=== PATIENT | female | born 1975 | race Caucasian/White ===

== ENCOUNTER 2016-06-04 22:08 | Emergency (ER) | payer BC ==
[~2016-06-04] VITALS: Ht 160 cm; Wt 97.1 kg
[~2016-06-04 22:08] MED LIST: NOHOMEMEDS
[2016-06-04 22:34] VITALS: BP 142/104
[2016-06-04] MEDS ORDERED: NAPROSYN500 MG PO (22:57)
[2016-06-04] MEDS ORDERED: AMOXICILLIN500 MG PO (22:57)
== END 2016-06-04 23:26 | disposition home or self-care (01) ==
LOC: EME 22:08 → EXP 22:08
DX: K08.9 Disorder of teeth and supporting structures, unspecified (principal)
CPT/HCPCS: 99281; 99283

== ENCOUNTER 2016-06-05 00:40 | Emergency (ER) | payer BC ==
[~2016-06-05] VITALS: Ht 160 cm; Wt 97.5 kg
[~2016-06-05 00:40] MED LIST changes: +AMOXICILLIN500 MG PO; +NAPROSYN500 MG PO
[2016-06-05 01:10] LABS: HEMATOCRIT 35.5 % (36.0-46.0); MCH 32.8 PG (29.0-34.0); MCHC 34.4 G/DL (30.0-36.0); MCV 95.4 FL (83-99); MEAN PLAT.VOLUME 10.3 uM^3 (9.5-12.4); PLATELET COUNT 293 K/uL (156-360); RBC DIS.WIDTH-CV 12.2 % (11.8-14.6); RBC DIS.WIDTH-SD 40.9 % (39-53); RED BLOOD COUNT 3.72 M/uL (3.80-5.20); WHITE BLOOD COUNT 12.3 K/uL (4.1-10.2)
[2016-06-05 01:26] LABS: INTER. NORMALIZED RATIO 1.1; PROTHROMBIN TIME 11.3 (9.2-11.2); PTT 23.8 (25-32)
[2016-06-05 01:29] LABS: CHLORIDE 105 mEq/L (99-109); POTASSIUM 3.5 mEq/L (3.7-5.4); SODIUM 138 mEq/L (136-147)
[2016-06-05 01:31] LABS: GLUCOSE 107 mg/dL (70-99)
[2016-06-05 01:32] LABS: ANION GAP 12 MEQ/L (2-14)
[2016-06-05 01:35] LABS: GFR ESTIMATE (CALCULATED) > 59 mL/min/
[2016-06-05 01:36] LABS: UREA NITROGEN (BUN) 8 mg/dL (9-23)
[2016-06-05 01:39] LABS: TROP-I INTERPRETATION NEGATIVE; TROPONIN-I < 0.01 ng/mL (0.0-0.30)
[2016-06-05 03:22] VITALS: BP 92/63
== END 2016-06-05 03:23 | disposition home or self-care (01) ==
LOC: EME 00:40
PROVIDERS: Emergency Medicine
DX: R55 Syncope and collapse (principal); T42.75XA Adverse effect of unspecified antiepileptic and sedative-hypnotic drugs, initial encounter; T39.1X5A Adverse effect of 4-Aminophenol derivatives, initial encounter
CPT/HCPCS: 71010; 80048; 83880; 84484; 85027; 85610; 85730; 93005; 99281; 99284; J7030

== ENCOUNTER 2016-07-30 10:31 | Emergency (ER) | payer BC ==
[~2016-07-30] VITALS: Ht 160 cm; Wt 96.6 kg
[2016-07-30 12:09] LABS: HEMATOCRIT 37.7 % (36.0-46.0); MCH 32.4 PG (29.0-34.0); MCHC 33.4 G/DL (30.0-36.0); MCV 96.9 FL (83-99); MEAN PLAT.VOLUME 10.3 uM^3 (9.5-12.4); PLATELET COUNT 282 K/uL (156-360); RBC DIS.WIDTH-CV 11.8 % (11.8-14.6); RBC DIS.WIDTH-SD 41.7 % (39-53); RED BLOOD COUNT 3.89 M/uL (3.80-5.20)
[2016-07-30] MEDS ORDERED: LISINOPRIL10 MG PO (12:17)
[2016-07-30] MEDS ORDERED: LORAZEPAM0.5 MG PO (12:19)
[2016-07-30 12:24] LABS: CHLORIDE 105 mEq/L (99-109); POTASSIUM 3.5 mEq/L (3.7-5.4); SODIUM 140 mEq/L (136-147)
[2016-07-30 12:26] LABS: GLUCOSE 113 mg/dL (70-99)
[2016-07-30 12:28] LABS: ANION GAP 10 MEQ/L (2-14)
[2016-07-30 12:30] LABS: GFR ESTIMATE (CALCULATED) > 59 mL/min/
[2016-07-30 12:31] LABS: UREA NITROGEN (BUN) 14 mg/dL (9-23)
[2016-07-30 12:32] LABS: TROP-I INTERPRETATION NEGATIVE; TROPONIN-I < 0.01 ng/mL (0.0-0.30)
[2016-07-30 12:57] LABS: D-DIMER ELISA < 0.15 mg/L FEU (< 0.57)
[2016-07-30 14:19] VITALS: BP 112/76
== END 2016-07-30 14:21 | disposition home or self-care (01) ==
LOC: EME 10:31
DX: R00.2 Palpitations (principal)
CPT/HCPCS: 71020; 80048; 84443; 84484; 85027; 85379; 93005; 99281; 99284

== ENCOUNTER 2016-08-08 17:12 | Emergency (ER) | payer BC ==
[~2016-08-08] VITALS: Ht 160 cm; Wt 97.1 kg
[~2016-08-08 17:12] MED LIST changes: +LISINOPRIL10 MG PO; +LORAZEPAM0.5 MG PO
[2016-08-08 17:54] LABS: HEMATOCRIT 39.7 % (36.0-46.0); MCV 97.1 FL (83-99); PLATELET COUNT 336 K/uL (156-360); RBC DIS.WIDTH-CV 11.6 % (11.8-14.6); RBC DIS.WIDTH-SD 41.6 % (39-53); RED BLOOD COUNT 4.09 M/uL (3.80-5.20); WHITE BLOOD COUNT 12.6 K/uL (4.1-10.2)
[2016-08-08 18:04] LABS: CHLORIDE 103 mEq/L (99-109); POTASSIUM 4.3 mEq/L (3.7-5.4); SODIUM 138 mEq/L (136-147)
[2016-08-08 18:06] LABS: GLUCOSE 159 mg/dL (70-99)
[2016-08-08 18:07] LABS: ANION GAP 9 MEQ/L (2-14)
[2016-08-08 18:09] LABS: GFR ESTIMATE (CALCULATED) > 59 mL/min/
[2016-08-08 18:10] LABS: UREA NITROGEN (BUN) 11 mg/dL (9-23)
[2016-08-08 18:15] LABS: TROP-I INTERPRETATION NEGATIVE; TROPONIN-I < 0.01 ng/mL (0.0-0.30)
[2016-08-08 20:06] LABS: D-DIMER ELISA < 0.15 mg/L FEU (< 0.57)
[2016-08-08 20:09] LABS: MAGNESIUM 2.1 mg/dL (1.3-2.7)
[2016-08-08] MEDS ORDERED: ATIVAN0.5 MG PO (20:54)
[2016-08-08 21:08] VITALS: BP 108/75
== END 2016-08-08 21:10 | disposition home or self-care (01) ==
LOC: EME 17:12
DX: R00.2 Palpitations (principal); R06.02 Shortness of breath
CPT/HCPCS: 71020; 80048; 83735; 84443; 84484; 85027; 85379; 93005; 99281; 99285

== ENCOUNTER 2017-04-21 19:44 | Emergency (ER) | payer BC ==
[~2017-04-21] VITALS: Ht 160 cm; Wt 97.7 kg
[~2017-04-21 19:44] MED LIST changes: +ATIVAN0.5 MG PO
[2017-04-21 20:33] LABS: ADD MIUA? YES; BILIRUBIN NEGATIVE; BLOOD NEGATIVE; COLOR YELLOW ((YELLOW)); GLUCOSE (STRIP) NEGATIVE; KETONES NEGATIVE; LEUKOCYTES TRACE; NITRITE NEGATIVE; PROTEIN (STRIP) NEGATIVE; SPECIFIC GRAVITY 1.013 (1.000-1.030); UROBILINOGEN 0.2 MG/DL (0.2-1.0)
[2017-04-21 20:38] LABS: HEMATOCRIT 35.7 % (36.0-46.0); MCH 33.5 PG (29.0-34.0); MCV 95.7 FL (83-99); MEAN PLAT.VOLUME 10.6 uM^3 (9.5-12.4); PLATELET COUNT 254 K/uL (156-360); RBC DIS.WIDTH-CV 11.8 % (11.8-14.6); RBC DIS.WIDTH-SD 40.9 % (39-53); RED BLOOD COUNT 3.73 M/uL (3.80-5.20); WHITE BLOOD COUNT 13.1 K/uL (4.1-10.2)
[2017-04-21 20:39] LABS: BACTERIA RARE /HPF; EPITHELIAL CELLS RARE /HPF; MUCUS TRACE /LPF; RED BLOOD CELLS 0-5 /HPF (0-5); UCUL ADDED? NO; WHITE BLOOD CELLS 0-5 /HPF (0-5)
[2017-04-21 20:47] LABS: CHLORIDE 105 mEq/L (99-109); POTASSIUM 3.7 mEq/L (3.7-5.4); SODIUM 137 mEq/L (136-147)
[2017-04-21 20:49] LABS: GLUCOSE 97 mg/dL (70-99)
[2017-04-21 20:50] LABS: ANION GAP 8 MEQ/L (2-14)
[2017-04-21 20:51] LABS: TOTAL BILIRUBIN 0.4 mg/dL (0.0-1.0)
[2017-04-21 20:53] LABS: ALKALINE PHOSPHATASE 81 IU/L (3-129); GFR ESTIMATE (CALCULATED) > 59 mL/min/
[2017-04-21 20:54] LABS: UREA NITROGEN (BUN) 12 mg/dL (9-23)
[2017-04-21 21:04] LABS: QUANTITATIVE HCG < 4.0 MIU/ML
[2017-04-21] MEDS ORDERED: METOPROLOL SUCC25 MG PO (21:27)
[2017-04-21] MEDS ORDERED: BENTYL20 MG PO (21:28)
[2017-04-22] MEDS ORDERED: NORCO 5/3251 TABLET PO (00:47)
[2017-04-22 01:00] LABS: INTERNAL CONTROL VALID? YES; MONOSPOT (MONONUCLEOSIS SEROL) NEGATIVE
[2017-04-22 01:04] VITALS: BP 113/75
== END 2017-04-22 01:07 | disposition home or self-care (01) ==
LOC: EME 19:44
DX: N83.202 Unspecified ovarian cyst, left side (principal); R16.2 Hepatomegaly with splenomegaly, not elsewhere classified; R10.13 Epigastric pain
CPT/HCPCS: 74177; 76856; 80053; 81003; 84702; 85027; 86308; 99281; 99285; J1885; J2405; J7030